=== PATIENT | female | born 1980 | race American Indian/Alaskan Native ===

== ENCOUNTER 2022-03-24 04:11 | Emergency (ER) | payer MEDICAID ==
[2022-03-24] MEDS ORDERED: dexAMETHasone 4 MG/ML VIAL IM ONE (08:01)
[2022-03-24] MEDS ORDERED: diphenhydrAMINE 25 MG CAP PO ONE (08:01)
[2022-03-24] MEDS ORDERED: METOCLOPRAMIDE 10 MG TAB PO ONE (08:01)
[2022-03-24 08:30] VITALS: BP 142/98
--- NOTE | 2022-03-24 10:00 | Cat Scan Report ---
CT HEAD WITHOUT CONTRAST INDICATION / CLINICAL INFORMATION: DAVID, blurred vision. TECHNIQUE: All CT scans at this location are performed using CT dose reduction for ALARA by means of automated exposure control. COMPARISON: None available. FINDINGS: BRAIN PARENCHYMA: No acute intracranial hemorrhage. No evidence of recent infarct. No mass effect or midline shift. VENTRICULAR SYSTEM/EXTRA-AXIAL SPACES: Ventricles are normal for age. No extra-axial fluid collection . ORBITS: Normal as visualized. SKELETAL SYSTEM/SOFT TISSUES: Normal bones and soft tissues. PARANASAL SINUSES/MASTOID AIR CELLS: No significant abnormality. ADDITIONAL FINDINGS: None. IMPRESSION: 1. No acute intracranial abnormality. Signer Name: Stoney Mcdaniels MD Signed: 03/24/2022 9:56 AM Workstation Name: [id number]
--- NOTE | 2022-03-24 10:57 | Emergency Department Report ---
ED Headache HPI - General Chief Complaint: Headache Stated Complaint: DAVID Time Seen by Provider: 03/24/22 07:30 - History of Present Illness Initial Comments: 41-year-old black female with a past medical history of hypertension presents to the emergency department for evaluation of 3-day history of headache. She states that she has been taking Tylenol daily without improvement. She states that she has had some blurred vision, nausea, dizziness, but denies photophobia, fever, cough, congestion. She states that she has not had a headache this bad in several years and she thinks that she was bleeding from her eyes yesterday. She also complains of elevated blood pressure readings for the past 2 days. She states that about a year ago she was taking labetalol but her primary care provider stopped her medication but she has noted elevated blood pressure for 2 days now. Timing/Duration: other (3 days) Quality: severe Head Injury Location: global Recent Head Trauma: no recent headache/trauma Associated Symptoms: nausea/vomiting, vision changes. denies: confusion, fatigue, facial pain, fever/chills, flushing, loss of consciousness, nasal congestion, nasal drainage, numbness in legs/feet, rash, seizures, sinus infection, stiff neck, weakness Allergies/Adverse Reactions: Allergies ketorolac [From Toradol] Allergy (Verified 03/24/22 04:24) Unknown naproxen [From Naprosyn] Allergy (Verified 03/24/22 04:24) Unknown Home Medications: Ambulatory Orders Butalb/Acetaminophen/Caffeine [Fioricet 50-300-40 mg CAP] 1 cap PO Q6HR PRN #15 cap 03/24/22 ED Review of Systems ROS: Stated complaint: DAVID Other details as noted in HPI Comment: All other systems reviewed and negative Constitutional: denies: chills, fever, weakness Eyes: vision change. denies: eye pain ENT: denies: ear pain, throat pain, congestion Respiratory: denies: cough, orthopnea, shortness of breath, SOB with exertion, SOB at rest, stridor, wheezing Cardiovascular: denies: chest pain, palpitations, dyspnea on exertion, orthopnea, edema, syncope, paroxysmal nocturnal dyspnea Gastrointestinal: denies: abdominal pain, nausea, vomiting, diarrhea, hematemesis, melena, hematochezia Genitourinary: denies: urgency, dysuria Musculoskeletal: denies: back pain Skin: denies: rash, lesions Neurological: headache. denies: weakness, numbness, paresthesias, confusion, abnormal gait, vertigo ED Past Medical Hx - Medications Home Medications: Home Medications Medication Instructions Recorded Confirmed Last Taken Type Butalb/Acetaminophen/Caffeine 1 cap PO Q6HR PRN #15 cap 03/24/22 Unknown Rx [Fioricet 50-300-40 mg CAP] ED Physical Exam - General Limitations: No Limitations General appearance: alert, in no apparent distress - Head Head exam: Present: atraumatic, normocephalic - Eye Eye exam: Present: normal appearance, PERRL, EOMI, other (No bleeding noted). Absent: periorbital swelling, periorbital tenderness Pupils: Present: normal accommodation - Neck Neck exam: Present: normal inspection, lymphadenopathy. Absent: tenderness, full ROM - Respiratory Respiratory exam: Present: normal lung sounds bilaterally. Absent: respiratory distress, wheezes, rales, rhonchi, stridor, chest wall tenderness - Cardiovascular Cardiovascular Exam: Present: regular rate, normal heart sounds - GI/Abdominal GI/Abdominal exam: Present: soft, normal bowel sounds. Absent: distended, guarding, rebound, rigid - Extremities Exam Extremities exam: Present: normal inspection, normal capillary refill. Absent: pedal edema, joint swelling, calf tenderness - Back Exam Back exam: Present: normal inspection. Absent: CVA tenderness (R), CVA tender ness (L), vertebral tenderness - Neurological Exam Neurological exam: Present: alert, oriented X3, CN II-XII intact - Expanded Neurological Exam Expanded Patient oriented to: Present: person, place, time Speech: Present: fluid speech Cranial nerves: EOM's Intact: Normal, Gag Reflex: Normal, Tongue Deviation: Normal, Nystagmus: Normal, Facial Sensation: Normal Ataxia: Absent: yes Cerebellar function: Romberg: Normal Sensory exam: Upper Extremity Light Touch: Normal, Upper Extremity Temperature: Normal, Lower Extremity Light Touch: Normal, Lower Extremity Temperature: Normal Motor strength exam: RUE: 5, LUE: 5, RLE: 5, LLE: 5 Best Eye Response ([place]): (4) open spontaneously Best Motor Response ([place]): (6) obeys commands Best Verbal Response ([place]): (5) oriented Adriane Total: 15 - Psychiatric Psychiatric exam: Present: normal affect, normal mood - Skin Skin exam: Present: warm, dry, intact, normal color ED Course Vital Signs 03/24/22 03/24/22 04:20 08:29 Temperature 98.2 F Pulse Rate 95 H 88 Respiratory 18 16 Rate Blood Pressure 159/109 142/98 [Left] O2 Sat by Pulse 99 98 Oximetry - Reevaluation(s) Reevaluation #1: 03/24/22 10:56 headache resolved. ED Medical Decision Making - Radiology Data Radiology results: report reviewed, image reviewed CT head: FINDINGS: BRAIN PARENCHYMA: No acute intracranial hemorrhage. No evidence of recent infarct. No mass effect or midline shift. VENTRICULAR SYSTEM/EXTRA-AXIAL SPACES: Ventricles are normal for age. No extra- axial fluid collection. ORBITS: Normal as visualized. SKELETAL SYSTEM/SOFT TISSUES: Normal bones and soft tissues. PARANASAL SINUSES/MASTOID AIR CELLS: No significant abnormality. ADDITIONAL FINDINGS: None. IMPRESSION: 1. No acute intracranial abnormality. - Medical Decision Making 41-year-old black female with a past medical history of hypertension presents to the emergency department for evaluation of 3-day history of headache. She states that she has been taking Tylenol daily without improvement. She states that she has had some blurred vision, nausea, dizziness, but denies photophobia, fever, cough, congestion. She states that she has not had a headache this bad in several years and she thinks that she was bleeding from her eyes yesterday. She also complains of elevated blood pressure readings for the past 2 days. She states that about a year ago she was taking labetalol but her primary care provider stopped her medication but she has noted elevated blood pressure for 2 days now. Headache and all symptoms resolved after medications. CT head without any acute abnormalities noted. Blood pressure improved. Given that patient's labetalol was stopped by her primary care provider, she is advised to monitor and record blood pressure at home and follow-up with primary care provider for further evaluation and management to see if she needs to restart blood pressure medication. She will be discharged home with prescription for Fioricet to use as needed for headache. She is advised to take medication as prescribed and return to the emergency department for any concerning symptoms. She verbalized understanding of and agreement with plan of care. Critical care attestation.: If time is entered above; I have spent that time in minutes in the direct care of this critically ill patient, excluding procedure time. ED Disposition Clinical Impression: Elevated blood pressure reading Headache Qualifiers: Headache type: unspecified Headache chronicity pattern: acute headache Intractability: not intractable Qualified Code(s): R51.9 - Headache, unspecified Disposition: 01 HOME / SELF CARE / HOMELESS Is pt being admited?: No Does the pt Need Aspirin: No Condition: Stable Instructions: DASH Eating Plan, Hypertension, Adult, [id number], Preventing Hypertension, General Headache Without Cause, [id number] Additional Instructions: Take medications as prescribed. Monitor and record blood pressure and follow-up with primary care provider for further evaluation and management. Return to the emergency department as needed. Prescriptions: Butalb/Acetaminophen/Caffeine [Fioricet 50-300-40 mg CAP] 1 cap PO Q6HR PRN #15 cap PRN Reason: Headache Referrals: PRIMARY CARE, [Primary Care Provider] - 3-5 Days Time of Disposition: 10:58
== END 2022-03-24 11:33 | disposition home or self-care (01) ==
LOC: ED 04:11
DX: I10 Essential (primary) hypertension (principal); R51.9 Headache, unspecified
CPT/HCPCS: 70450; 96372; 99283; J1100